=== PATIENT | female | born 1980 | race Caucasian/White ===

== ENCOUNTER 2018-12-26 16:49 | Emergency (ER) | payer MEDICAID ==
[~2018-12-26] VITALS: Ht 167.6 cm; Wt 68.2 kg
[2018-12-26 16:54] VITALS: Ht 167.6 cm; Wt 68.2 kg
[2018-12-26 19:15] LABS: BASOPHILS 0.1 % (0-2); EOSINOPHILS 0.9 % (0-7); HEMOGLOBIN 13.3 g/dL (12-16); IMMATURE GRANULOCYTES 0.3 % (0-5); LYMPHOCYTES 24.5 % (15-50); MCH 31.5 pg (26.0-34.0); MCHC 34.1 g/dL (31.0-37.0); MCV 92.4 fL (80.0-100.0); MEAN PLATELET VOLUME 10.9 fL (7.4-10.4); MONOCYTES 5.4 % (2-11); NEUTROPHILS 68.8 % (40-80); PLATELET COUNT 225 10x3/uL (130-400); RBC 4.22 10x6/uL (4.00-5.40); RDW 12.4 % (11.5-14.5); WBC 11.4 10x3/uL (4.8-10.8)
[2018-12-26 19:32] LABS: ALBUMIN 3.4 g/dL (3.4-5.0); ALKALINE PHOSPHATASE 53 U/L (46-116); ALT (SGPT) 22 U/L (10-68); CALC OSMOLALITY 281 mosm/kg (275-300); CALCIUM 8.7 mg/dL (8.5-10.1); CARBON DIOXIDE 24.6 mmol/L (21.0-32.0); CHLORIDE - SERUM 105 mmol/L (98-107); CREATININE - SERUM 0.7 mg/dL (0.6-1.3); GLUCOSE 101 mg/dL (74-106); POTASSIUM - SERUM 3.2 mmol/L (3.5-5.1); PROTEIN - SERUM 6.8 g/dL (6.4-8.2); SODIUM 141 mmol/L (136-145); UREA NITROGEN 15 mg/dL (7-18); eGFR NON AFRICAN AMERICAN > 90 mL/min (90-120)
[2018-12-26 19:40] LABS: CKMB 0.3 U/L (0.0-3.6)
[2018-12-26] MEDS ORDERED: PREDNISONE10 MG PO (21:21)
[2018-12-26] MEDS ORDERED: VISTARIL25 MG PO (21:21)
[2018-12-26] MEDS ORDERED: PEPCID40 MG PO (21:21)
[2018-12-26 22:37] VITALS: BP 122/74
== END 2018-12-26 22:39 | disposition home or self-care (01) ==
LOC: D.ER 16:49
PROVIDERS: Family Medicine
DX: T78.40XA Allergy, unspecified, initial encounter (principal); X58.XXXA Exposure to other specified factors, initial encounter; L50.9 Urticaria, unspecified; F17.200 Nicotine dependence, unspecified, uncomplicated

== ENCOUNTER → 2019-07-15 10:18 | Outpatient (CLI) | payer OTHER ==
[2018-12-26 16:54] VITALS: BMI 24.2
[~2019-07-15 10:18] MED LIST: PEPCID40 MG PO; PREDNISONE10 MG PO; VISTARIL25 MG PO
== END | disposition home or self-care (01) ==
LOC: D.RT 10:18
PROVIDERS: ATTEND Nurse Practitioner
DX: R06.09 Other forms of dyspnea (principal)

== ENCOUNTER 2019-09-09 18:39 | Emergency (ER) | payer OTHER ==
[~2019-09-09] VITALS: Ht 167.6 cm; Wt 65.5 kg
[2019-09-09 19:02] VITALS: Ht 167.6 cm; Wt 65.5 kg
[2019-09-09] MEDS ORDERED: PROZAC20 MG PO (19:04)
[2019-09-09] MEDS ORDERED: ZOFRAN4 MG PO (19:04)
[2019-09-09] MEDS ORDERED: MECLIZINE HCL25 MG PO (19:05)
[2019-09-09] MEDS ORDERED: MINIPRESS1 MG PO (19:05)
[2019-09-09] MEDS ORDERED: OMEPRAZOLE20 M1 PO (19:05)
[2019-09-09] MEDS ORDERED: IMITREX100 MG PO (19:05)
[2019-09-09] MEDS ORDERED: FEXOFENADINE H180 MG PO (19:05)
[2019-09-09] MEDS ORDERED: TYLENOL W/CODEI1 TAB PO (19:06)
[2019-09-09] MEDS ORDERED: VALTREX500 MG PO (19:06)
[2019-09-09] MEDS ORDERED: ZOLOFT100 MG PO (19:06)
[2019-09-09] MEDS ORDERED: BENTYL 20 MG TA20 MG PO (19:06)
[2019-09-09] MEDS ORDERED: NEURONTIN 300300 MG PO (19:06)
[2019-09-09 19:23] LABS: BASOPHILS 0.2 % (0-2); EOSINOPHILS 4.1 % (0-7); HEMATOCRIT 42.5 % (36.0-48.0); HEMOGLOBIN 14.8 g/dL (12-16); IMMATURE GRANULOCYTES 0.1 % (0-5); MCH 32.3 pg (26.0-34.0); MCHC 34.8 g/dL (31.0-37.0); MCV 92.8 fL (80.0-100.0); MEAN PLATELET VOLUME 10.6 fL (7.4-10.4); NEUTROPHILS 42.6 % (40-80); PLATELET COUNT 224 10x3/uL (130-400); RBC 4.58 10x6/uL (4.00-5.40); RDW 12.2 % (11.5-14.5); WBC 8.9 10x3/uL (4.8-10.8)
[2019-09-09 20:00] LABS: ALBUMIN 4.5 g/dL (3.4-5.0); ALKALINE PHOSPHATASE 66 U/L (46-116); ALT (SGPT) 21 U/L (10-68); BILIRUBIN - TOTAL 0.46 mg/dL (0.2-1.3); CALC OSMOLALITY 279 mosm/kg (275-300); CALCIUM 9.4 mg/dL (8.5-10.1); CARBON DIOXIDE 26.1 mmol/L (21.0-32.0); CHLORIDE - SERUM 105 mmol/L (98-107); CREATININE - SERUM 0.8 mg/dL (0.6-1.3); GLUCOSE 94 mg/dL (74-106); POTASSIUM - SERUM 3.2 mmol/L (3.5-5.1); PROTEIN - SERUM 8.1 g/dL (6.4-8.2); SODIUM 141 mmol/L (136-145); UREA NITROGEN 11 mg/dL (7-18); eGFR NON AFRICAN AMERICAN 85 mL/min (90-120)
[2019-09-09 20:01] LABS: APPEARANCE CLEAR (CLEAR); BILIRUBIN NEGATIVE (NEGATIVE); COLOR YELLOW (YELLOW); GLUCOSE NEGATIVE (NEGATIVE); KETONE SMALL mg/dL (NEGATIVE); NITRITE NEGATIVE (NEGATIVE); PROTEIN NEGATIVE (NEGATIVE); RED CELLS - URINE 0-5 /hpf (0-5); UROBILINOGEN NORMAL (NORMAL); WHITE CELLS - URINE 0-5 /hpf (NEGATIVE)
[2019-09-09 20:02] LABS: BACTERIA FEW /hpf (NEGATIVE)
[2019-09-09 20:03] LABS: AMYLASE - SERUM 64 U/L (25-115); LIPASE 214 U/L (73-393); TROPONIN-I < 0.017 ng/mL (0.000-0.060)
[2019-09-09] MEDS ORDERED: LEVSIN/ANASP0.125 MG PO (22:04)
[2019-09-09] MEDS ORDERED: ZOFRAN ODT4 MG/UDTAB PO (22:04)
[2019-09-09 22:31] VITALS: BP 124/80
[2019-09-18] MEDS ORDERED: COMPAZINE25 MG RC (11:05)
[2019-09-18] MEDS ORDERED: FLUTICASONE PRO16 GM NASAL (11:08)
[2019-09-18] MEDS ORDERED: POTASSIUM PO (11:08)
== END 2019-09-09 22:31 | disposition home or self-care (01) ==
LOC: D.ER 18:39
PROVIDERS: Family Medicine
DX: R10.9 Unspecified abdominal pain (principal)

== ENCOUNTER 2019-09-21 06:00 | Day surgery (SDC) | payer OTHER ==
[2019-09-18 11:28] LABS: HEMATOCRIT 42.3 % (36.0-48.0); HEMOGLOBIN 14.8 g/dL (12-16); MCH 32.2 pg (26.0-34.0); MCV 92.2 fL (80.0-100.0); MEAN PLATELET VOLUME 10.5 fL (7.4-10.4); RBC 4.59 10x6/uL (4.00-5.40); RDW 12.2 % (11.5-14.5); WBC 5.9 10x3/uL (4.8-10.8)
[~2019-09-21] VITALS: Ht 170.2 cm; Wt 66.2 kg
[~2019-09-21 06:00] MED LIST changes: +BENTYL 20 MG TA20 MG PO; +COMPAZINE25 MG RC; +FEXOFENADINE H180 MG PO; +FLUTICASONE PRO16 GM NASAL; +IMITREX100 MG PO; +LEVSIN/ANASP0.125 MG PO; +MECLIZINE HCL25 MG PO; +MINIPRESS1 MG PO; +NEURONTIN 300300 MG PO; +OMEPRAZOLE20 M1 PO; +POTASSIUM PO; +PROZAC20 MG PO; +TYLENOL W/CODEI1 TAB PO; +VALTREX500 MG PO; +ZOFRAN ODT4 MG/UDTAB PO; +ZOFRAN4 MG PO; +ZOLOFT100 MG PO
--- NOTE | 2019-09-21 06:51 | NUR ---
SUICIDE SCREENING POSITIVE, NOTIFIED GABRIEL WITH RETIREMENT.
[2019-09-21 06:53] VITALS: BP 120/81; Ht 170.2 cm; Wt 66.2 kg
--- NOTE | 2019-09-21 07:07 | NUR ---
PATIENT HERE FOR SURGICAL PROCEDURE. SHE IS NOT SUICIDAL, SHE STATES THAT SHE COULD NEVER DO ANYTHING LIKE THAT TO HER FAMILY. SHE GIVES REASONS FOR LIVING. SUICIDE PREVENTION RESOURCE SHEET GIVEN TO PATIENT
[2019-09-21] MEDS ORDERED: MIRALAX17 GM PO (08:41)
[2019-09-21] MEDS ORDERED: DILAUDID4 MG PO (08:41)
--- NOTE | 2019-09-21 09:00 | NUR ---
OPA REMOVED. RR NONLABORED ON RA. PT NOW AWAKE.
--- NOTE | 2019-09-21 11:04 | NUR ---
1050 iv removed pt was asleep prior to iv being removed and pt started with severe pain. only about 45min since pain med given. assited with getting dressed and pt wanted to wait until went to [facility]. pt instructed not to take the tylenol #3 for back pain as well as dilaudid ordered for hemorroids. called in to rx colace 100mg bid
--- NOTE | 2019-09-21 11:27 | NUR ---
pt appears pain better. voided x2 moderate amt
== END 2019-09-21 11:28 | disposition home or self-care (01) ==
LOC: D.OPS 06:00 → D.PAN 08:00 → D.OPS 11:28
PROVIDERS: Anesthesiology; ATTEND Surgery
DX: K64.8 Other hemorrhoids (principal); F17.200 Nicotine dependence, unspecified, uncomplicated; M79.7 Fibromyalgia